=== PATIENT | female | born 1980 ===

== ENCOUNTER 2017-04-20 12:33 | Day surgery (SDC) | payer OTHER ==
[~2017-04-20 12:33] MED LIST: DOCUSATE SODIU100 MG PO; Mylicon 125MG PO; OXYC1TAB9 PO
== END 2017-04-20 22:10 | disposition home or self-care (01) ==
LOC: CIR.AMB 12:33
DX: O03.4 Incomplete spontaneous abortion without complication (principal); E66.8 Other obesity